=== PATIENT | female | born 1985 | race Two or more races ===

== ENCOUNTER 2024-11-24 08:29 | Day surgery (SDC) | payer OTHER ==
[2024-11-11 09:30] VITALS: BP 117/77
[2024-11-11 09:38] LABS: HEMATOCRIT 39.3 % (36.0-45.00); HEMOGLOBIN 13.1 g/dL (12.0-15.00); MEAN CELL VOLUME 86.4 fL (80.00-100.00); MEAN CORPUSCULAR HEMOGLOBIN 28.9 pg (27.00-32.0); MEAN CORPUSCULAR HGB CONC 33.5 g/dl (32.0-36.0); PLATELET COUNT 205 K/uL (150-450); RED BLOOD COUNT 4.55 M/uL (4.00-6.00); RED CELL DISTRIBUTION WIDTH 14.3 % (11.5-14.5)
[2024-11-11 09:42] LABS: PARTIAL THROMBOPLASTIN TIME 29.3 SECONDS (22.0-34.0); PROTHROMBIN TIME 10.9 SECONDS (9.0-11.5)
[2024-11-11 09:55] LABS: URINE APPEARANCE Turbid; URINE BILIRRUBIN Negative (NEGATIVE); URINE BLOOD Negative; URINE COLOR Yellow; URINE GLUCOSE Negative (NEGATIVE); URINE KETONE Negative (NEGATIVE); URINE LEUKOCYTE Trace; URINE NITRATE Negative; URINE PROTEIN Negative (NEGATIVE); URINE UROBILINOGEN 0.2 E.U./dl
[2024-11-11 10:00] LABS: URINE BACTERIA 157.8 uL (0.0-1933); URINE EPITHELIAL CELLS 18.8 uL (0.0-38.8); URINE WBC 4.9 uL (0.0-23.2)
[2024-11-11 10:07] LABS: URINE CAST 0.29 uL (0.0-1.40)
[2024-11-11 10:48] LABS: ALBUMIN 3.7 gm/dL (3.4-5.0); BILIRUBIN TOTAL 0.53 mg/dL (0.3-1.2); BILIRUBIN,CONJUGATED 0.13 mg/dL (0.0-0.2); BILIRUBIN,UNCONJUGATED 0.4 mg/dL (0.0-0.6); CALCIUM 9.3 mg/dL (8.5-10.1); CREATININE SERUM 0.59 mg/dL (0.55-1.02); GFR 113.47; GLOBULINA 2.9 G/DL (2.4-3.5); POTASSIUM 4.17 mEq/L (3.5-5.1); TOTAL PROTEIN 6.6 gm/dL (6.4-8.2)
[~2024-11-24] VITALS: Ht 152.4 cm; Wt 54.0 kg
[~2024-11-24 08:29] MED LIST: NUERIN PO
[2024-11-24] MEDS ORDERED: CIPROFLOXACIN IN 5 % DEXTROSE 400 MG/200 ML PIGGYBAG IV ONE (10:31)
[2024-11-24] MEDS ORDERED: ENOXAPARIN SODIUM 40 MG/0.4 ML SYRINGE SUBCUTANEO ONE (10:39)
[2024-11-24] MEDS ORDERED: BUPIVACAINE HCL/MPF 0.5% 30ML VIAL ONE (12:50)
[2024-11-24] MEDS ORDERED: PERCOCET 5-3251 EACH PO (14:31)
[2024-11-24] MEDS ORDERED: NEURONTIN800 MG PO (14:31)
[2024-11-24] MEDS ORDERED: MIRALAX510 GM PO (14:32)
[2024-11-24] MEDS ORDERED: SURFAK240 M1 PO (14:32)
[2024-11-24] MEDS ORDERED: PROTONIX20 MG PO (14:32)
[2024-11-24] MEDS ORDERED: ONDANSETRON HCL 2 MG/ML VIAL IV ONE (15:30)
[2024-11-24] MEDS ORDERED: MORPHINE SULFATE 2 MG/ML CARTRIDGE IV ONE (15:35)
== END 2024-11-24 17:00 | disposition home or self-care (01) ==
LOC: CIR.AMB 08:29
PROVIDERS: ATTEND Surgery
DX: K80.10 Calculus of gallbladder with chronic cholecystitis without obstruction (principal); Z88.0 Allergy status to penicillin